=== PATIENT | male | born 1955 | race Caucasian/White ===

== ENCOUNTER → 2018-08-30 11:24 | Outpatient (CLI) | payer OTHER, SELFPAY ==
[2018-08-30 16:25] LABS: Thyroid Stimulating Hormone 1.13 uIU/mL (0.47-4.68)
[2018-08-30 18:44] LABS: Alanine Aminotransferase 83 IU/L (21-72); Albumin 4.7 g/dL (3.5-5.0); Alkaline Phosphatase 76 U/L (38-126); Aspartate Aminotransferase 56 IU/L (17-59); Bilirubin Total 0.8 mg/dL (0.2-1.3); Blood Urea Nitrogen 21 mg/dL (9-20); Calcium 9.8 mg/dL (8.4-10.2); Carbon Dioxide 28 mmol/L (22-32); Chloride 102 mmol/L (98-107); Cholesterol 141 mg/dL (140-199); Estimated Glomerular Filt Rate > 60.0 mL/min (>60); Globulin 2.4 g/dL (1.7-4.1); Glucose 113 mg/dL (80-110); HDL Cholesterol 47 mg/dL (40-60); HEMOLYSIS < 15 (0-50); LDL Cholesterol Calculated 71 mg/dL (<100); Sodium 142 mmol/L (137-145); Total Protein 7.1 g/dL (6.3-8.2); Triglycerides 116 mg/dL (35-150)
== END ==
PROVIDERS: PCP Family Medicine; Visit Provider Family Medicine
DX: R97.20 Elevated prostate specific antigen [PSA] (principal); Z00.00 Encounter for general adult medical examination without abnormal findings
CPT/HCPCS: 36415; 80053; 80061; 84153; 84443

== ENCOUNTER → 2019-04-07 10:09 | Outpatient (CLI) | payer OTHER, SELFPAY ==
[2019-04-09 15:59] LABS: PSA Free % 17 % (calc) (> 25); PSA, Total 8.2 ng/mL (< 4.1)
== END ==
PROVIDERS: PCP Family Medicine; Visit Provider Family Medicine
DX: R97.20 Elevated prostate specific antigen [PSA] (principal)
CPT/HCPCS: 36415; 84153; 84154

== ENCOUNTER → 2019-04-18 10:51 | Outpatient (CLI) | payer OTHER, SELFPAY ==
[2019-04-18 12:48] LABS: Prostate Specific Antigen 5.18 ng/mL (0.10-4.00)
== END ==
PROVIDERS: PCP Family Medicine; Visit Provider Family Medicine
DX: R97.20 Elevated prostate specific antigen [PSA] (principal)
CPT/HCPCS: 36415; 84153

== ENCOUNTER → 2019-12-16 10:11 | Outpatient (CLI) | payer OTHER, SELFPAY ==
[2019-12-16 11:29] LABS: Add Manual Diff / Slide Review NO; Basophils Absolute Auto 0 /uL (0-100); Basophils Percent Auto 0.8 % (0-2); Eosinophils Absolute Auto 300 /uL (0-450); Eosinophils Percent Auto 5.2 % (2-4); Hematocrit 47.6 % (41-53); Hemoglobin 16.7 g/dL (13.5-17.5); Lymphocytes Absolute Auto 1800 /uL (1100-4500); Lymphocytes Percent Auto 31.9 % (25-40); Mean Corpuscular HGB Conc 35.1 % (30-36); Mean Corpuscular Hemoglobin 32.9 PG (26-34); Mean Corpuscular Volume 93.7 fL (80-100); Monocytes Absolute Auto 600 /uL (0-900); Monocytes Percent Auto 10.3 % (3-14); Neutrophils Absolute Auto 2900 /uL (1500-7000); Neutrophils Percent Auto 51.8 % (50-75); Platelet Count 140 X10^3/uL (150-400); Red Blood Cell Count 5.08 X10^6/uL (4.5-5.9); Red Cell Distribution Width 12.5 % (11.6-14.8); White Blood Cell Count 5.5 X10^3/uL (4.5-11.0)
[2019-12-16 11:37] LABS: Alanine Aminotransferase 116 IU/L (<50); Albumin 4.6 g/dL (3.5-5.0); Albumin Globulin Ratio 1.6 (1.0-2.8); Alkaline Phosphatase 80 U/L (38-126); Aspartate Aminotransferase 75 IU/L (17-59); Bilirubin Total 0.8 mg/dL (0.2-1.3); Blood Urea Nitrogen 19 mg/dL (9-20); Calcium 9.3 mg/dL (8.4-10.2); Carbon Dioxide 29 mmol/L (22-32); Chloride 98 mmol/L (98-107); Cholesterol 132 mg/dL (140-199); Estimated Glomerular Filt Rate > 60.0 mL/min (>60); Globulin 2.8 g/dL (1.7-4.1); Glucose 107 mg/dL (80-110); HDL Cholesterol 30 mg/dL (40-60); HEMOLYSIS 17 (0-50); LDL Cholesterol Calculated 76 mg/dL (<100); Sodium 141 mmol/L (137-145); Total Protein 7.4 g/dL (6.3-8.2); Triglycerides 132 mg/dL (35-150)
[2019-12-20 14:02] LABS: PSA Free % 16 % (calc) (> 25); PSA, Total 9.2 ng/mL (< 4.1)
== END ==
PROVIDERS: PCP Family Medicine; Referring Provider Family Medicine; Visit Provider Family Medicine
DX: Z13.220 Encounter for screening for lipoid disorders (principal); I10 Essential (primary) hypertension; R97.20 Elevated prostate specific antigen [PSA]; Z87.19 Personal history of other diseases of the digestive system
CPT/HCPCS: 36415; 80053; 80061; 84153; 84154; 85025

== ENCOUNTER → 2020-04-13 11:22 | Outpatient (CLI) | payer MEDICARE, OTHER, SELFPAY ==
[2020-04-13 13:29] LABS: Prostate Specific Antigen 7.17 ng/mL (0.10-4.00)
== END ==
PROVIDERS: PCP Family Medicine; Referring Provider Urology; Visit Provider Urology
DX: R97.20 Elevated prostate specific antigen [PSA] (principal)
CPT/HCPCS: 36415; 84153

== ENCOUNTER → 2020-06-14 16:23 | Outpatient (CLI) | payer MEDICARE, OTHER, SELFPAY ==
[2020-06-14 18:02] LABS: Prostate Specific Antigen 5.31 ng/mL (0.10-4.00)
== END ==
PROVIDERS: PCP Family Medicine; Referring Provider Family Medicine; Visit Provider Specialist
DX: N40.0 Benign prostatic hyperplasia without lower urinary tract symptoms (principal)
CPT/HCPCS: 36415; 84153

== ENCOUNTER → 2020-11-07 12:27 | Outpatient (CLI) | payer MEDICARE, OTHER, SELFPAY ==
[2020-11-07 14:20] LABS: Prostate Specific Antigen 4.74 ng/mL (0.10-4.00)
== END ==
PROVIDERS: PCP Family Medicine; Referring Provider Specialist; Visit Provider Specialist
DX: R97.20 Elevated prostate specific antigen [PSA] (principal)
CPT/HCPCS: 36415; 84153

== ENCOUNTER → 2021-01-07 11:10 | Outpatient (CLI) | payer MEDICARE, OTHER, SELFPAY ==
--- NOTE | 2021-01-07 11:11 | DI.MRI.S_ITS ---
PROCEDURE: MR PELIS WO/W CON INDICATIONS: Elevated PSA TECHNIQUE: Coronal HASTE, axial T1 FSE with fat saturation, 3-plane nonbreath-hold T2 FSE. After the administration of contrast, dynamic axial, delayed axial and coronal VIBE or 2-D FLASH with fat saturation through the pelvis. Optional diffusion weighted imaging and ADC may be performed. COMPARISON: None. FINDINGS: Image quality: Diffusion weighted and dynamic contrast enhanced images are diagnostic. Prostate: Gland size is 5.6 x 5.8 x 6.2 cm; ellipsoid gland volume is 104.7 mL. There is mild hypertrophy of the transitional zone Lesion size(s): Lesion 1: 2.1 x 0.6 cm in axial plane. Lesion 2: 1.4 x 0.7 cm in the axial plane Lesion 3: Approximately 1.7 x 2.1 cm in the axial plane. Lesion location(s) (sector): Lesion 1: Right posterolateral peripheral zone at the mid gland to base Lesion 2: Left posterolateral peripheral zone at the mid gland Lesion 3: Right posterior transitional zone at the apex Lesion description: Lesion 1: Linear, well-defined hypointensity that extends cranial and blurs the margin of the capsule. There is probable involvement of the neurovascular bundle which is indistinct at the 07:00 o'clock region. Lesion 2: Wedge-shaped, slightly ill-defined mildly hypointense Lesion 3: Ill-defined, vaguely wedge-shaped, indistinct margins, possible erased charcoal sign, blurring pseudo capsule T2 weighted imaging (T2WI) morphology score: Lesion 1: Five Lesion 2: Three Lesion 3: Three Diffusion weighted imaging (DWI) morphology score: Lesion 1: Three Lesion 2: Two Lesion 3: Three Dynamic contrast enhancement (DCE): Lesion 1: Present Lesion 2: Absent Lesion 3: Absent Lesion PI-RADS score: Lesion 1: PI-RADS 4 Lesion 2: PI-RADS 2 Lesion 3: PI-RADS 3 Genitourinary system: Bladder wall thickness is normal. Distal ureters are non distended. Bowel and peritoneum: No pathologic free pelvic fluid. Inferior colon and small bowel loops are normal in caliber. Nodes and vessels: There is a 9 mm short axis presacral lymph node below the level of the aortic bifurcation (33/23). No other suspicious enlarged lymph nodes. Iliac vessels are normal in caliber. Soft tissues: No inguinal hernias. Bones: Marrow demonstrates normal overall signal, without lesions to suggest metastases. IMPRESSION: 1. PI-RADS 4 lesion In the right posterolateral peripheral zone from mid gland to base and potentially involving right neurovascular bundle. 2. PI-RADS three lesion in the right transitional zone near the apex blurring the pseudo capsule. 3. Wedge-shaped PI-RADS two left-sided peripheral zone lesion. Down graded based on lack of ADC hypointensity. 4. Nonspecific, but mildly suspicious enlarged single high sacral lymph node. Dictated by: Ronel Evans M.D. on 01/07/2021 at 14:09 Approved by: Ronel Evans M.D. on 01/07/2021 at 15:02
== END ==
PROVIDERS: PCP Family Medicine; Referring Provider Specialist; Visit Provider Specialist
DX: R97.20 Elevated prostate specific antigen [PSA] (principal); N42.9 Disorder of prostate, unspecified
CPT/HCPCS: 72197

== ENCOUNTER → 2021-01-16 14:23 | Outpatient (CLI) | payer MEDICARE, OTHER, SELFPAY ==
[2021-01-16] MEDS: COVID-19 VACC, Ad26(JANSSEN)/PF 0.5 ML IM (14:40)
== END ==
PROVIDERS: PCP Family Medicine; Visit Provider Internal Medicine
DX: Z23 Encounter for immunization (principal)
CPT/HCPCS: 0031A; 91303

== ENCOUNTER → 2021-01-30 09:09 | Outpatient (CLI) | payer MEDICARE, OTHER, SELFPAY ==
[2021-01-30 10:04] LABS: Add Manual Diff / Slide Review NO; Basophils Absolute Auto 0 /uL (0-100); Basophils Percent Auto 0.7 % (0-2); Eosinophils Absolute Auto 200 /uL (0-450); Eosinophils Percent Auto 3.9 % (2-4); Hematocrit 46.7 % (41-53); Hemoglobin 16.3 g/dL (13.5-17.5); Lymphocytes Absolute Auto 1400 /uL (1100-4500); Lymphocytes Percent Auto 24.3 % (25-40); Mean Corpuscular HGB Conc 34.9 % (30-36); Mean Corpuscular Hemoglobin 32.5 PG (26-34); Mean Corpuscular Volume 93.1 fL (80-100); Monocytes Absolute Auto 700 /uL (0-900); Monocytes Percent Auto 11.7 % (3-14); Neutrophils Absolute Auto 3400 /uL (1500-7000); Neutrophils Percent Auto 59.4 % (50-75); Platelet Count 131 X10^3/uL (150-400); Red Blood Cell Count 5.01 X10^6/uL (4.5-5.9); Red Cell Distribution Width 12.7 % (11.6-14.8); White Blood Cell Count 5.7 X10^3/uL (4.5-11.0)
[2021-01-30 10:26] LABS: Alanine Aminotransferase 78 IU/L (<50); Albumin 4.4 g/dL (3.5-5.0); Albumin Globulin Ratio 1.6 (1.0-2.8); Alkaline Phosphatase 76 U/L (38-126); Aspartate Aminotransferase 50 IU/L (17-59); BUN Creatinine Ratio 19.6 (6-22); Bilirubin Total 0.5 mg/dL (0.2-1.3); Blood Urea Nitrogen 20 mg/dL (9-20); Calcium 9.4 mg/dL (8.4-10.2); Carbon Dioxide 30 mmol/L (22-32); Chloride 99 mmol/L (98-107); Cholesterol 130 mg/dL (140-199); Estimated Glomerular Filt Rate > 60.0 mL/min (>60); Globulin 2.7 g/dL (1.7-4.1); Glucose 107 mg/dL (80-110); HDL Cholesterol 38 mg/dL (40-60); HEMOLYSIS < 15 (0-50); LDL Cholesterol Calculated 63 mg/dL (<100); Sodium 137 mmol/L (137-145); Total Protein 7.1 g/dL (6.3-8.2); Triglycerides 143 mg/dL (35-150)
[2021-01-30 10:47] LABS: Creatinine Urine Random 205.3 mg/dL
[2021-01-30 10:51] LABS: Microalbumi Creatinin Ratio Ur 21.9 ug/mg CR (<30); Microalbumin Urine Random 4.5 mg/dL (0-1.6)
== END ==
PROVIDERS: PCP Family Medicine; Referring Provider Family Medicine; Visit Provider Family Medicine
DX: D69.6 Thrombocytopenia, unspecified (principal); N40.0 Benign prostatic hyperplasia without lower urinary tract symptoms; I10 Essential (primary) hypertension; K76.0 Fatty (change of) liver, not elsewhere classified; R97.20 Elevated prostate specific antigen [PSA]
CPT/HCPCS: 36415; 80053; 80061; 82043; 82570; 85025; 99215

== ENCOUNTER → 2021-05-06 13:10 | Outpatient (CLI) | payer MEDICARE, OTHER, SELFPAY ==
[2021-05-06 15:26] LABS: Prostate Specific Antigen 4.46 ng/mL (0.10-4.00)
== END ==
PROVIDERS: PCP Family Medicine; Referring Provider Specialist; Visit Provider Specialist
DX: N40.0 Benign prostatic hyperplasia without lower urinary tract symptoms (principal)
CPT/HCPCS: 36415; 84153

== ENCOUNTER → 2021-12-04 11:42 | Outpatient (CLI) | payer MEDICARE, OTHER, SELFPAY ==
[2021-12-04 14:03] LABS: Prostate Specific Antigen 6.41 ng/mL (0.10-4.00)
== END ==
PROVIDERS: PCP Family Medicine; Referring Provider Specialist; Visit Provider Specialist
DX: C61 Malignant neoplasm of prostate (principal); R97.20 Elevated prostate specific antigen [PSA]
CPT/HCPCS: 36415; 84153

== ENCOUNTER → 2021-12-11 11:21 | Outpatient (CLI) | payer MEDICARE, OTHER, SELFPAY ==
[2021-12-11 13:53] LABS: Prostate Specific Antigen 5.54 ng/mL (0.10-4.00)
== END ==
PROVIDERS: PCP Family Medicine; Referring Provider Specialist; Visit Provider Specialist
DX: C61 Malignant neoplasm of prostate (principal); R97.20 Elevated prostate specific antigen [PSA]
CPT/HCPCS: 36415; 51798; 81002; 84153; 99214

== ENCOUNTER → 2022-02-18 09:45 | Outpatient (CLI) | payer MEDICARE, OTHER, SELFPAY ==
[2022-02-18 11:00] LABS: Add Manual Diff / Slide Review NO; Basophils Absolute Auto 0 /uL (0-100); Basophils Percent Auto 0.9 % (0-2); Eosinophils Absolute Auto 200 /uL (0-450); Eosinophils Percent Auto 3.6 % (2-4); Hematocrit 46.9 % (41-53); Hemoglobin 16.2 g/dL (13.5-17.5); Lymphocytes Absolute Auto 1300 /uL (1100-4500); Lymphocytes Percent Auto 27.7 % (25-40); Mean Corpuscular HGB Conc 34.5 % (30-36); Mean Corpuscular Hemoglobin 32.3 PG (26-34); Mean Corpuscular Volume 93.4 fL (80-100); Monocytes Absolute Auto 500 /uL (0-900); Monocytes Percent Auto 10.7 % (3-14); Neutrophils Absolute Auto 2800 /uL (1500-7000); Neutrophils Percent Auto 57.1 % (50-75); Platelet Count 148 X10^3/uL (150-400); Red Blood Cell Count 5.02 X10^6/uL (4.5-5.9); Red Cell Distribution Width 12.9 % (11.6-14.8); White Blood Cell Count 4.8 X10^3/uL (4.5-11.0)
[2022-02-18 12:08] LABS: Alanine Aminotransferase 104 IU/L (<50); Albumin 4.5 g/dL (3.5-5.0); Albumin Globulin Ratio 1.8 (1.0-2.8); Alkaline Phosphatase 63 U/L (38-126); Aspartate Aminotransferase 67 IU/L (17-59); BUN Creatinine Ratio 22.2 (6-22); Bilirubin Total 1.1 mg/dL (0.2-1.3); Blood Urea Nitrogen 22 mg/dL (9-20); Carbon Dioxide 30 mmol/L (22-32); Chloride 101 mmol/L (98-107); Cholesterol 150 mg/dL (140-199); Estimated Glomerular Filt Rate > 60.0 mL/min (>60); Globulin 2.5 g/dL (1.7-4.1); Glucose 101 mg/dL (80-110); HDL Cholesterol 45 mg/dL (40-60); HEMOLYSIS < 15 (0-50); LDL Cholesterol Calculated 80 mg/dL (<100); Microalbumin Urine Random 6.6 mg/dL (0-1.6); Potassium 3.9 mmol/L (3.4-5.1); Sodium 139 mmol/L (137-145); Triglycerides 123 mg/dL (35-150)
[2022-02-18 12:13] LABS: Creatinine Urine Random 191.7 mg/dL; Microalbumi Creatinin Ratio Ur 34.4 ug/mg CR (<30)
[2022-02-18 12:37] LABS: TSH w/ Reflex to FT4 1.43 uIU/mL (0.47-4.68)
== END ==
PROVIDERS: PCP Family Medicine; Referring Provider Family Medicine; Visit Provider Family Medicine
DX: C61 Malignant neoplasm of prostate (principal); I10 Essential (primary) hypertension; K76.0 Fatty (change of) liver, not elsewhere classified; R00.2 Palpitations; Z00.00 Encounter for general adult medical examination without abnormal findings
CPT/HCPCS: 36415; 80053; 80061; 82043; 82570; 84443; 85025

== ENCOUNTER → 2022-06-03 15:05 | Outpatient (CLI) | payer MEDICARE, OTHER, SELFPAY ==
[2022-06-03 16:50] LABS: Prostate Specific Antigen 6.33 ng/mL (0.10-4.00)
== END ==
PROVIDERS: PCP Family Medicine; Referring Provider Specialist; Visit Provider Specialist
DX: R97.20 Elevated prostate specific antigen [PSA] (principal)
CPT/HCPCS: 36415; 84153

== ENCOUNTER → 2022-11-20 14:45 | Outpatient (CLI) | payer MEDICARE, OTHER, SELFPAY ==
[2022-11-20 17:33] LABS: Prostate Specific Antigen 6.31 ng/mL (0.10-4.00)
== END ==
PROVIDERS: PCP Family Medicine; Referring Provider Specialist; Visit Provider Specialist
DX: R97.20 Elevated prostate specific antigen [PSA] (principal)
CPT/HCPCS: 36415; 84153

== ENCOUNTER → 2023-02-02 15:02 | Outpatient (CLI) | payer MEDICARE, OTHER, SELFPAY ==
[2023-02-02 15:51] LABS: Add Manual Diff / Slide Review NO; Basophils Absolute Auto 100 /uL (0-100); Basophils Percent Auto 0.7 % (0-2); Eosinophils Absolute Auto 300 /uL (0-450); Eosinophils Percent Auto 3.7 % (2-4); Hematocrit 46.2 % (41-53); Lymphocytes Absolute Auto 1800 /uL (1100-4500); Mean Corpuscular HGB Conc 34.7 % (30-36); Mean Corpuscular Hemoglobin 32.2 PG (26-34); Mean Corpuscular Volume 92.8 fL (80-100); Monocytes Absolute Auto 700 /uL (0-900); Monocytes Percent Auto 10.4 % (3-14); Neutrophils Absolute Auto 4200 /uL (1500-7000); Neutrophils Percent Auto 60.2 % (50-75); Platelet Count 156 X10^3/uL (150-400); Red Blood Cell Count 4.97 X10^6/uL (4.5-5.9); Red Cell Distribution Width 12.6 % (11.6-14.8)
[2023-02-02 16:58] LABS: Creatinine Urine Random 126.4 mg/dL
[2023-02-02 16:59] LABS: Microalbumi Creatinin Ratio Ur 41.9 ug/mg CR (<30); Microalbumin Urine Random 5.3 mg/dL (0-1.6)
[2023-02-02 19:01] LABS: HEMOLYSIS < 15 (0-50); Potassium 3.7 mmol/L (3.4-5.1)
[2023-02-02 19:02] LABS: Alanine Aminotransferase 99 IU/L (<50); Albumin 4.3 g/dL (3.5-5.0); Albumin Globulin Ratio 1.6 (1.0-2.8); Alkaline Phosphatase 89 U/L (38-126); Aspartate Aminotransferase 70 IU/L (17-59); BUN Creatinine Ratio 17.1 (6-22); Bilirubin Total 0.6 mg/dL (0.2-1.3); Blood Urea Nitrogen 19 mg/dL (9-20); Calcium 9.2 mg/dL (8.4-10.2); Carbon Dioxide 30 mmol/L (22-32); Chloride 98 mmol/L (98-107); Estimated Glomerular Filt Rate > 60 mL/min (>60); Globulin 2.7 g/dL (1.7-4.1); Glucose 91 mg/dL (80-110); Sodium 135 mmol/L (137-145)
== END ==
PROVIDERS: PCP Family Medicine; Referring Provider Family Medicine; Visit Provider Family Medicine
DX: C61 Malignant neoplasm of prostate (principal); I10 Essential (primary) hypertension; K76.0 Fatty (change of) liver, not elsewhere classified; N40.0 Benign prostatic hyperplasia without lower urinary tract symptoms
CPT/HCPCS: 36415; 80053; 82043; 82570; 85025

== ENCOUNTER → 2023-06-08 15:08 | Outpatient (CLI) | payer MEDICARE, OTHER, SELFPAY ==
[2023-06-08 16:42] LABS: Prostate Specific Antigen 5.45 ng/mL (0.10-4.00)
== END ==
PROVIDERS: PCP Family Medicine; Referring Provider Specialist; Visit Provider Specialist
DX: R97.20 Elevated prostate specific antigen [PSA] (principal)
CPT/HCPCS: 36415; 84153

== ENCOUNTER 2023-10-20 10:25 | Day surgery (SDC) | payer MEDICARE, OTHER, SELFPAY ==
--- NOTE | 2023-10-20 | PATH_ITS ---
[facility] Accession Number: [id number] No. of containers..02 Tissue . 01 Material submitted: . PART A: colon - SIGMOID POLYP X2 PART B: colon - TRANSVERSE COLON POLYP . 01 Diagnosis: A. Sigmoid Colon, Polyp x2: Tubular adenomas. . B. Transverse Colon, Polyp: Tubular adenoma. [facility] 10/29/2023 1337 Local . 01 Electronically signed: . Ene Freedman MD, Pathologist NPI- [id number] . 01 Gross description: . Part A: SIGMOID POLYP X2: Received in formalin is 2 fragment(s) of blankenship, soft tissue measuring 0.4 x 0.2 x 0.2 cm to 0.3 x 0.2 x 0.2 cm submitted entirely in 1 cassette(s) Part B: TRANSVERSE COLON POLYP: Received in formalin is 1 fragment(s) of blankenship, soft tissue measuring 0.3 x 0.3 x 0.2 cm submitted entirely in 1 cassette(s) /AAY 10/21/2023 0520 Local . 01 Pathologist provided ICD-10: D12.5, D12.3 . 01 CPT . 245558, 021739 Specimen Comment: A courtesy copy of this report has been sent to [phone] Performed at: 01 [facility] [address] [place] [address], [place], [place] [id number] MD Arian Kidd MD Phone: [phone]
[2023-10-20 10:45] VITALS: BMI 28.5
[2023-10-20 10:51] VITALS: BP 148/98; PULSE 81; RESP 22; TEMP 36.7; O2SAT 98
[2023-10-20] MEDS: LACTATED RINGERS 1,000 ML 42 ML IV (10:56)
--- NOTE | 2023-10-20 11:25 | PM.HP.1 ---
History of Present Illness History of Present Illness Date Patient Seen: 10/20/23 Chief complaint: Colonoscopy Narrative: 67-year-old man history of colonic polyps here for screening colonoscopy. Last colonoscopy 5 years ago normal. No abdominal concerns today [facility] Medical History Chicken pox Colon polyps (~2004) Elevated liver enzymes Elevated PSA Measles Medicare annual wellness visit, subsequent Prostate cancer Surgical History Anesthesia History of shoulder surgery (~1994) Family History Father Accident Mother Stroke Brother Cancer Social History household members: spouse Smoking Status: Former smoker alcohol intake: current Meds Home Medications and Allergies Home Medications Medication Instructions Recorded Confirmed Type aspirin 81 mg capsule 81 mg PO DAILY ##0 03/12/11 10/20/23 History [fish oil] 1 tab PO BID ##0 08/19/12 07/07/23 History cholecalciferol (vitamin D3) 50 50 mcg PO DAILY 02/06/22 10/20/23 History mcg (2,000 unit) capsule amlodipine 5 mg tablet See Rx Instructions .Route 01/30/23 10/20/23 Rx .COMPLEX #90 tabs triamterene 37.5 See Rx Instructions .Route 03/12/23 10/20/23 Rx mg-hydrochlorothiazide 25 mg .COMPLEX #90 caps capsule sulfasalazine 500 mg tablet See Rx Instructions .Route 08/18/23 10/20/23 Rx .COMPLEX #450 tabs sodium,potassium,mag sulfates 17.5 See Rx Instructions PO .COMPLEX 08/27/23 Rx gram-3.13 gram-1.6 gram oral soln #354 mL (Suprep Bowel Prep Kit) temazepam 15 mg capsule See Rx Instructions .Route 10/20/23 10/20/23 History .COMPLEX PRN Insomnia Allergies Allergy/AdvReac Type Severity Reaction Status Date / Time No Known Drug Allergies Allergy Verified 10/20/23 10:43 Exam Vital Signs (past 8 hours): - 10/20/23 10:51 Temperature 98.1 F Pulse Rate 81 Respiratory Rate 22 Blood Pressure 148/98 H Pulse Oximetry 98 Oxygen Delivery Method Room Air Oxygen Delivery Method Room Air Narrative Exam Narrative: General adult man alert oriented no acute distress Chest nonlabored respiration Extremities warm well perfused Assessment & Plan Assessment and plan (1) Tubular adenoma: Status: None Assessment & Plan narrative: The patient requires colorectal screening and colonoscopy is recommended. Technical details were discussed. Risks, benefits, alternatives explained. Risks including but not limited to myocardial infarction, aspiration, bleeding, pain, missed lesion, incomplete examination, need for further radiographic studies, colonic perforation, and need for major abdominal surgery were discussed. All questions were answered to their satisfaction, and they are in agreement with this plan.
[2023-10-20 11:51] VITALS: BP 113/82; PULSE 80; RESP 16; TEMP 36.3; O2SAT 94
[2023-10-20 11:56] VITALS: BP 149/89; PULSE 74; RESP 13; O2SAT 97
--- NOTE | 2023-10-20 11:57 | P.OP.COLON_ITS ---
Operative Date/Time/Diagnoses Date of procedure: 10/20/23 Time of procedure: 11:57 Pre-op diagnosis: Personal history of colonic polyps Post-op diagnosis: other (Colonic polyps x3) Procedure & Clinicians Study performed: Colonoscopy and polypectomy Same procedure as scheduled: Yes Indications: Personal history of colonic polyps Colorectal screening Surgeon: Ho Calderón Procedure Notes Procedure in detail: The history and physical was performed/updated and the patient is ASA class is 2. The procedure was discussed in detail with the patient. Potential risks complications including infection, bleeding, missed diagnosis, perforation, need for surgery, and were explained. Their questions were answered and informed consent was obtained. Patient was brought to the procedure room and placed standard monitoring equipment. The patient's vital signs were monitored continuously throughout the entire procedure. Prior to starting time-out was performed. The patient was placed in the left lateral recumbent position. Procedural sedation was administered by anesthesia. Examination began with a thorough inspection of the perianal area there was no evidence of fissures, fistulae, external hemorrhoids or cutaneous malignancy. The colonoscopy scope was then placed into the anal canal and was advanced to the cecum, which was identified by the ileocecal valve, the appendiceal orifice and the confluence of the taenia. The scope was then slowly withdrawn examining colon thoroughly in all directions, irrigating it of any residual stool. The scope was retroflexed within the rectum The patient tolerated the procedure well. They will be discharged once criteria are met. The prep was of good/excellent quality. The withdrawl time was 11 minutes. FINDINGS * Sigmoid colon -3-5 mm polyps removed with biopsy forceps x 2 * Transverse colon single 3 mm polyp removed with biopsy forceps * Mild diverticulosis of the sigmoid colon Specimen(s): other (Transverse and sigmoid colonic polyps x2) Impression: Colonic polyps x3 Post-procedure Plan for aftercare: Follow-up is dependent on pathology findings Disposition: same day surgery
[2023-10-20 12:01] VITALS: BP 148/95; PULSE 70; RESP 15; O2SAT 96
[2023-10-20 12:07] VITALS: BP 148/95; PULSE 68; RESP 14; O2SAT 98
== END 2023-10-20 12:16 | disposition home or self-care (01) ==
PROVIDERS: PCP Family Medicine; Referring Provider Surgery; Visit Provider Surgery
PROC: 0DJD8ZZ Inspection of Lower Intestinal Tract, Via Natural or Artificial Opening Endoscopic (ICD-10-PCS; CPT 45378; principal; 2023-10-20 11:45)
DX: Z12.11 Encounter for screening for malignant neoplasm of colon (principal); Z86.010 Personal history of colon polyps; K57.30 Diverticulosis of large intestine without perforation or abscess without bleeding; D12.5 Benign neoplasm of sigmoid colon; D12.3 Benign neoplasm of transverse colon
CPT/HCPCS: 45380

== ENCOUNTER → 2023-12-30 10:10 | Outpatient (CLI) | payer MEDICARE, OTHER, SELFPAY ==
[2023-12-30 11:21] LABS: Prostate Specific Antigen 4.73 ng/mL (0.10-4.00)
== END ==
PROVIDERS: PCP Family Medicine; Referring Provider Specialist; Visit Provider Specialist
DX: R97.20 Elevated prostate specific antigen [PSA] (principal)
CPT/HCPCS: 36415; 84153

== ENCOUNTER → 2024-03-22 14:05 | Outpatient (CLI) | payer MEDICARE, OTHER, SELFPAY ==
--- NOTE | 2024-03-22 14:09 | DI.US.S_ITS ---
PROCEDURE: US ABD AORTA ANEURYSM SCREEN INDICATIONS: AAA screening TECHNIQUE: Real time scanning was performed of the aorta and iliac arteries, with image documentation. COMPARISON: [facility], , ABDOMEN COMPLETE, 03/30/2013, 8:46. FINDINGS: Aorta: Proximal aortic diameter measures 2.3 cm. Mid-aorta measures 2.1 cm. Distal aortic diameter is 1.9 cm. Iliac arteries: Right common iliac artery measures 1.1 cm. Left common iliac artery measures 1 cm. IMPRESSION: Negative for aneurysm. Dictated by: Yann Cole M.D. on 03/22/2024 at 18:22 Approved by: Yann Cole M.D. on 03/22/2024 at 18:23
[2024-03-22 15:07] LABS: Add Manual Diff / Slide Review NO; Basophils Absolute Auto 0 /uL (0-100); Basophils Percent Auto 0.5 % (0-2); Eosinophils Absolute Auto 100 /uL (0-450); Eosinophils Percent Auto 2.3 % (2-4); Hematocrit 45.6 % (41-53); Lymphocytes Absolute Auto 1600 /uL (1100-4500); Lymphocytes Percent Auto 24.2 % (25-40); Mean Corpuscular Hemoglobin 32.6 PG (26-34); Mean Corpuscular Volume 93.1 fL (80-100); Monocytes Absolute Auto 700 /uL (0-900); Neutrophils Absolute Auto 4100 /uL (1500-7000); Platelet Count 188 X10^3/uL (150-400); Red Cell Distribution Width 12.7 % (11.6-14.8); White Blood Cell Count 6.6 X10^3/uL (4.5-11.0)
[2024-03-22 15:29] LABS: Alanine Aminotransferase 86 IU/L (<50); Albumin 4.7 g/dL (3.5-5.0); Albumin Globulin Ratio 1.7 (1.0-2.8); Alkaline Phosphatase 90 U/L (38-126); Aspartate Aminotransferase 66 IU/L (17-59); BUN Creatinine Ratio 20.6 (6-22); Bilirubin Total 0.7 mg/dL (0.2-1.3); Blood Urea Nitrogen 20 mg/dL (9-20); Calcium 9.8 mg/dL (8.4-10.2); Carbon Dioxide 28 mmol/L (22-32); Chloride 102 mmol/L (98-107); Cholesterol 155 mg/dL (140-199); Estimated Glomerular Filt Rate > 60 mL/min (>60); Globulin 2.7 g/dL (1.7-4.1); Glucose 101 mg/dL (80-110); HDL Cholesterol 56 mg/dL (40-60); HEMOLYSIS < 15 (0-50); LDL Cholesterol Calculated 65 mg/dL (<100); Potassium 3.8 mmol/L (3.4-5.1); Sodium 139 mmol/L (137-145); Total Protein 7.4 g/dL (6.3-8.2); Triglycerides 168 mg/dL (35-150)
[2024-03-22 15:58] LABS: TSH w/ Reflex to FT4 1.41 uIU/mL (0.47-4.68)
[2024-03-22 16:04] LABS: Creatinine Urine Random 117.5 mg/dL
[2024-03-22 16:09] LABS: Microalbumi Creatinin Ratio Ur 58.7 ug/mg CR (<30); Microalbumin Urine Random 6.9 mg/dL (0-1.6)
[2024-03-23 11:41] LABS: Apolipoprotein B 71 mg/dL (<90)
== END ==
LOC: US 14:08
PROVIDERS: PCP Family Medicine; Referring Provider Family Medicine; Visit Provider Family Medicine
DX: Z00.00 Encounter for general adult medical examination without abnormal findings (principal); Z13.6 Encounter for screening for cardiovascular disorders; C61 Malignant neoplasm of prostate; K76.0 Fatty (change of) liver, not elsewhere classified; I10 Essential (primary) hypertension; Z87.891 Personal history of nicotine dependence
CPT/HCPCS: 36415; 76706; 80053; 80061; 82043; 82172; 82570; 84443; 85025; 86803

== ENCOUNTER → 2024-05-10 14:51 | Outpatient (CLI) | payer MEDICARE, OTHER, SELFPAY ==
[2024-05-10 15:44] LABS: Alanine Aminotransferase 91 IU/L (<50); Albumin 4.7 g/dL (3.5-5.0); Albumin Globulin Ratio 1.7 (1.0-2.8); Alkaline Phosphatase 89 U/L (38-126); Aspartate Aminotransferase 72 IU/L (17-59); Bilirubin Total 0.6 mg/dL (0.2-1.3); Globulin 2.8 g/dL (1.7-4.1); HEMOLYSIS < 15 (0-50); Total Protein 7.5 g/dL (6.3-8.2)
[2024-05-10 18:48] LABS: Creatinine Urine Random 123.88 mg/dL
[2024-05-10 18:52] LABS: Microalbumin Urine Random 6.1 mg/dL (0-1.6)
[2024-05-12 14:35] LABS: Hepatitis B Surface Antigen NEGATIVE s/c (NEGATIVE)
[2024-05-13 16:09] LABS: Smooth Muscle Antibody 2 Units (0-19)
[2024-05-14 05:10] LABS: Hepatitis B Surf Ab Qualitativ Non Reactive (.)
== END ==
PROVIDERS: PCP Family Medicine; Referring Provider Family Medicine; Visit Provider Family Medicine
DX: R74.8 Abnormal levels of other serum enzymes (principal); I10 Essential (primary) hypertension; R80.9 Proteinuria, unspecified
CPT/HCPCS: 36415; 80076; 82043; 82570; 86015; 86038; 86706; 87340

== ENCOUNTER → 2024-06-01 14:42 | Outpatient (CLI) | payer MEDICARE, OTHER, SELFPAY ==
--- NOTE | 2024-06-01 14:43 | DI.US.S_ITS ---
PROCEDURE: US ABDOMEN LIMITED INDICATIONS: elevated liver enzymes TECHNIQUE: Real-time focused scanning was performed of the abdomen, with image documentation. COMPARISON: [facility], US, ABDOMEN COMPLETE, 03/30/2013, 8:46. FINDINGS: The liver demonstrates mildly enlarged size. The liver demonstrates generalized moderately increased echogenicity. This decreases ultrasound sensitivity for detection of hepatic masses. No findings of gallstones or sludge are seen. The gallbladder wall is not thickened, measuring 3 mm or less. No specific pericholecystic fluid is seen. The sonographic Aponte sign is negative. There is no biliary dilatation, the common bile duct measures 5 mm. No significant pancreatic abnormality is seen on these images. IMPRESSION: The liver demonstrates increased echogenicity. This finding is nonspecific, yet it is most commonly attributed to fatty infiltration. The gallbladder demonstrates a normal sonographic appearance. No biliary dilatation is seen. Dictated by: Yann Cole M.D. on 06/01/2024 at 14:51 Approved by: Yann Cole M.D. on 06/01/2024 at 14:52
== END ==
PROVIDERS: PCP Family Medicine; Referring Provider Family Medicine; Visit Provider Family Medicine
DX: R74.8 Abnormal levels of other serum enzymes (principal); R16.0 Hepatomegaly, not elsewhere classified; I10 Essential (primary) hypertension; R80.9 Proteinuria, unspecified
CPT/HCPCS: 76705

== ENCOUNTER → 2024-06-30 12:57 | Outpatient (CLI) | payer MEDICARE, OTHER, SELFPAY | LOC: LAB 12:58 | PROVIDERS: PCP Family Medicine; Referring Provider Specialist; Visit Provider Specialist | DX: N40.1 Benign prostatic hyperplasia with lower urinary tract symptoms (principal) | CPT/HCPCS: 36415; 84153 ==

== ENCOUNTER → 2025-04-24 11:17 | Outpatient (CLI) | payer MEDICARE, OTHER, SELFPAY ==
[2025-04-24 13:55] LABS: Prostate Specific Antigen 6.66 ng/mL (0.10-4.00)
== END ==
PROVIDERS: PCP Family Medicine; Referring Provider Urology; Visit Provider Urology
DX: C61 Malignant neoplasm of prostate (principal); R97.20 Elevated prostate specific antigen [PSA]
CPT/HCPCS: 36415; 84153

== ENCOUNTER → 2025-05-03 09:20 | Outpatient (CLI) | payer MEDICARE, OTHER, SELFPAY | PROVIDERS: PCP Family Medicine; Visit Provider Urology | DX: C61 Malignant neoplasm of prostate (principal) | CPT/HCPCS: 51798; 81002; 87086; 99214 ==

== ENCOUNTER → 2025-05-30 10:53 | Outpatient (CLI) | payer MEDICARE, OTHER, SELFPAY ==
[2025-05-30 12:00] LABS: Add Manual Diff / Slide Review NO; Hematocrit 47.0 % (41-53); Hemoglobin 16.5 g/dL (13.5-17.5); Lymphocytes Absolute Auto 1800 /uL (1100-4500); Mean Corpuscular HGB Conc 35.1 % (30-36); Mean Corpuscular Hemoglobin 32.9 PG (26-34); Mean Corpuscular Volume 93.9 fL (80-100); Platelet Count 155 X10^3/uL (150-400)
[2025-05-30 12:24] LABS: Alanine Aminotransferase 146 IU/L (<50); Albumin 4.8 g/dL (3.5-5.0); Albumin Globulin Ratio 1.8 (1.0-2.8); Alkaline Phosphatase 85 U/L (38-126); Blood Urea Nitrogen 21 mg/dL (9-20); Calcium 9.5 mg/dL (8.4-10.2); Carbon Dioxide 29 mmol/L (22-32); Chloride 100 mmol/L (98-107); Cholesterol 154 mg/dL (140-199); Estimated Glomerular Filt Rate > 60 mL/min (>60); Globulin 2.6 g/dL (1.7-4.1); Glucose 100 mg/dL (70-99); HDL Cholesterol 45 mg/dL (40-60); HEMOLYSIS < 15 (0-50); Potassium 3.8 mmol/L (3.4-5.1); Sodium 139 mmol/L (137-145); Total Protein 7.4 g/dL (6.3-8.2); Triglycerides 161 mg/dL (35-150)
[2025-05-30 12:34] LABS: Microalbumi Creatinin Ratio Ur 13.0 ug/mg CR (<30)
[2025-05-30 12:54] LABS: TSH w/ Reflex to FT4 1.48 uIU/mL (0.47-4.68)
== END ==
PROVIDERS: PCP Family Medicine; Referring Provider Family Medicine; Visit Provider Family Medicine
DX: Z00.00 Encounter for general adult medical examination without abnormal findings (principal); K52.9 Noninfective gastroenteritis and colitis, unspecified; K76.0 Fatty (change of) liver, not elsewhere classified; I10 Essential (primary) hypertension; C61 Malignant neoplasm of prostate; N40.0 Benign prostatic hyperplasia without lower urinary tract symptoms
CPT/HCPCS: 36415; 80053; 80061; 82043; 82570; 84443; 85025

== ENCOUNTER → 2025-10-18 10:24 | Outpatient (CLI) | payer MEDICARE, OTHER, SELFPAY ==
[2025-10-18 11:37] LABS: Prostate Specific Antigen 7.35 ng/mL (0.10-4.00)
== END ==
PROVIDERS: PCP Family Medicine; Referring Provider Urology; Visit Provider Urology
DX: C61 Malignant neoplasm of prostate (principal); N40.1 Benign prostatic hyperplasia with lower urinary tract symptoms
CPT/HCPCS: 36415; 84153